=== PATIENT | male | born 1960 | race Caucasian/White ===

== ENCOUNTER 2019-12-20 17:52 | Emergency (ER) | payer BC, OTHER ==
[~2019-12-20] VITALS: Ht 167.6 cm; Wt 108.9 kg
[~2019-12-20 17:52] MED LIST: ALLO100; HYDACE5 PO; IBUP800 PO; INS70/30I; METF500; PIOG15; RXHYDACE PO
[2019-12-20 18:38] LABS: BASOPHILS ABSOLUTE AUTO 0.09 K/mm3 (0.00-0.23); BASOPHILS PERCENT AUTO 1 % (0-2); EOSINOPHILS ABSOLUTE AUTO 0.52 K/mm3 (0.00-0.68); EOSINOPHILS PERCENT AUTO 7 % (0-6); Hematocrit 45.5 % (37.0-53.0); Hemoglobin 15.4 g/dL (13.5-17.5); IMMATURE GRAN ABSOLUTE AUTO 0.03 K/mm3 (0.00-0.10); IMMATURE GRAN PERCENT AUTO 0 % (0-1); LYMPHOCYTES ABSOLUTE AUTO 3.57 K/mm3 (0.84-5.20); LYMPHOCYTES PERCENT AUTO 45 % (21-46); MONOCYTES ABSOLUTE AUTO 0.54 K/mm3 (0.16-1.47); MONOCYTES PERCENT AUTO 7 % (4-13); Mean Corpuscular HGB 33.7 pg (26.0-34.0); Mean Corpuscular HGB Conc 33.8 g/dL (31.5-36.5); Mean Corpuscular Volume 100 fL (80-100); Mean Platelet Volume 9.9 fL (9.1-12.4); NEUTROPHILS ABSOLUTE AUTO 3.13 K/mm3 (1.96-9.15); NEUTROPHILS PERCENT AUTO 40 % (41-73); Platelet Count 173 K/mm3 (150-400); RDW Coefficient Variation 14.6 % (11.7-14.2); RDW Standard Deviation 53.3 fL (35.1-46.3); Red Blood Cell Count 4.57 M/mm3 (4.30-5.90); White Blood Cell Count 7.88 K/mm3 (4.00-11.30)
[2019-12-20] MEDS ORDERED: ALLO300 PO (18:44)
[2019-12-20] MEDS ORDERED: ATOR20 PO (18:44)
[2019-12-20] MEDS ORDERED: ZESTRIL40 M1 PO (18:45)
[2019-12-20] MEDS ORDERED: AMLO5 PO (18:45)
[2019-12-20] MEDS ORDERED: PIOG45 PO (18:45)
[2019-12-20] MEDS ORDERED: Glucophage1000 MG PO (18:46)
[2019-12-20] MEDS ORDERED: BASAGLAR K100 UNIT/2 SC (18:46)
[2019-12-20] MEDS ORDERED: Aspirin EC81 MG PO (18:46)
[2019-12-20] MEDS ORDERED: JARDIANCE25 MG PO (18:46)
[2019-12-20 18:58] LABS: Anion Gap 8 mmol/L (6-16); Blood Urea Nitrogen 11 mg/dL (8-24); CO2, Blood 26 mmol/L (21-32); Calcium, Blood 9.1 mg/dL (8.5-10.1); Chloride, Blood 103 mmol/L (98-108); Creatinine, Blood 0.79 mg/dL (0.60-1.20); Ethanol (Alcohol), Blood, Med 266 mg/dL; Glomerular Filtration Rate >60 (60-); Glucose, Blood 147 mg/dL (70-99); Sodium, Blood 137 mmol/L (136-145)
== END 2019-12-20 19:40 | disposition home or self-care (01) ==
LOC: ER 17:52
PROVIDERS: Student in an Organized Health Care Education/Training Program
DX: F10.129 Alcohol abuse with intoxication, unspecified (principal); Y90.8 Blood alcohol level of 240 mg/100 ml or more; E10.9 Type 1 diabetes mellitus without complications; M10.9 Gout, unspecified; F17.200 Nicotine dependence, unspecified, uncomplicated
CPT/HCPCS: 70450; 80048; 85025; 93005; 93010; 99284-25; G0480

== ENCOUNTER 2023-03-18 06:17 | Day surgery (SDC) | payer OTHER ==
[~2023-03-18] VITALS: Ht 170.2 cm; Wt 82.6 kg
[2023-03-18] VITALS (7 sets, daily range): BP systolic 121–151; BP diastolic 68–97
[~2023-03-18 06:17] MED LIST changes: +ALBU90OI INH; +ALDACTONE25 MG PO; +ALLO300 PO; +AMLO5 PO; +ATOR20 PO; +Aspirin EC81 MG PO; +BASAGLAR K100 UNIT/2 SC; +BUPR150ER PO; +ENTRESTO 24 MG1 EACH PO; +Glucophage1000 MG PO; +JARDIANCE25 MG PO; +METO50ER PO; +PIOG30 PO; +PIOG45 PO; +TORS10 PO; +ZESTRIL40 M1 PO
--- NOTE | 2023-03-18 09:15 | NUR ---
pt back from procedure at this time. tr band in place to right wrist with 10cc of air in band. [facility] site wnl. pt. vss. food and beverages provided. call light in reach
--- NOTE | 2023-03-18 09:58 | NUR ---
ASSUMED CARE OF PATIENT, TR BAND IN PLACE. BREAKFAST TRAY COMPLETE. CLL LIGHT IN REACH. TR BAND SITE CDI, NO BLEEDING NO HEMATOMA. CALLED AND UPDATE HER ON DISCHARGE TIME.
--- NOTE | 2023-03-18 11:03 | NUR ---
1040 ATTEMPTED TO REMOVE AIR, BLEEDING OCCURED. AIR RETURNED TO TR BAND.
--- NOTE | 2023-03-18 11:04 | NUR ---
1100 AIR REMOVED FROM THE TR BAND, 2 ML, NO BLEEDING OCCURED THIS TIME. CONTINUED TO MONITOR. AT THE BEDSIDE. STARED DISCHARGE INSTRUCTIONS WITH AND .
--- NOTE | 2023-03-18 12:06 | NUR ---
1140 PIV REMOVED, CATH TIP INTACT, PRESSURE DRESSING APPLIED. TR BAND REMOVED AND SITE CLEANED AND COT DOT APPLIED. WHITE BOARD REAPPLIED. PATIENT DRESSED AND REVIEWED ALL DISCHARGE INSTRUCTIONS WITH THE PATIENT AND HIS . SIGNATURES OBTAINED. VERIFIED FOLLOW UP APPOINMENT.
--- NOTE | 2023-03-18 12:10 | NUR ---
1205 PATIENT DRESSED AND ALL BELONGINGS GATHERED AND DISCHARGED HOME WITH THE MANAGER DIABETES.
== END 2023-03-18 13:59 | disposition home or self-care (01) ==
LOC: MHTC 06:17
DX: I50.20 Unspecified systolic (congestive) heart failure (principal); I42.0 Dilated cardiomyopathy; E11.9 Type 2 diabetes mellitus without complications; Z79.84 Long term (current) use of oral hypoglycemic drugs
CPT/HCPCS: 76937; 93460; 93571; 93572; 99152; 99153; C1769; C1887; C1894; J0153; J1644; J2250; J3010; J7030; J7050; Q9967

== ENCOUNTER → 2024-03-04 | Outpatient (CLI) | payer OTHER ==
[2024-03-11 12:49] LABS: Stool Occult Bld Immuno 1 Negative (NEGATIVE)
== END | disposition home or self-care (01) ==
LOC: LAB 12:00 → LAB SHORT 12:00
PROVIDERS: Nurse Practitioner Family
DX: R79.9 Abnormal finding of blood chemistry, unspecified (principal)
CPT/HCPCS: G0328

== ENCOUNTER 2024-06-16 10:52 | Inpatient (IN) | payer OTHER ==
[~2024-06-16] VITALS: Ht 167.6 cm; Wt 89.0 kg
[~2024-06-16 10:52] MED LIST changes: -Glucophage1000 MG PO; +METF500 PO; +METO25ER PO; -METO50ER PO
[2024-06-16] MEDS ORDERED: Dextrose 50% 50 ML Syringe IV ONE (11:25)
[2024-06-16] MEDS ORDERED: Albuterol 2.5 MG/3 ML VIAL INH SCH (11:25)
[2024-06-16] MEDS ORDERED: Insulin Regular 100 Unit/ML 1ML Dose IV ONE (11:25)
[2024-06-16] MEDS ORDERED: Sodium Bicarb 8.4% 1 MEQ/ML 50 ML Vial IV ONE (11:25)
[2024-06-16] MEDS ORDERED: Dextrose 50% 50 ML Vial IV ONE (11:30)
[2024-06-16 11:31] LABS: BASOPHILS ABSOLUTE AUTO 0.11 K/mm3 (0.00-0.23); BASOPHILS PERCENT AUTO 1 % (0-2); EOSINOPHILS ABSOLUTE AUTO 0.46 K/mm3 (0.00-0.68); EOSINOPHILS PERCENT AUTO 5 % (0-6); Hemoglobin 12.8 g/dL (13.5-17.5); IMMATURE GRAN ABSOLUTE AUTO 0.01 K/mm3 (0.00-0.10); IMMATURE GRAN PERCENT AUTO 0 % (0-1); LYMPHOCYTES ABSOLUTE AUTO 1.68 K/mm3 (0.84-5.20); LYMPHOCYTES PERCENT AUTO 19 % (21-46); MONOCYTES ABSOLUTE AUTO 1.05 K/mm3 (0.16-1.47); MONOCYTES PERCENT AUTO 12 % (4-13); Mean Corpuscular HGB 32.3 pg (26.0-34.0); Mean Corpuscular Volume 101 fL (80-100); Mean Platelet Volume 10.4 fL (9.1-12.4); NEUTROPHILS ABSOLUTE AUTO 5.51 K/mm3 (1.96-9.15); NEUTROPHILS PERCENT AUTO 63 % (41-73); Platelet Count 165 K/mm3 (150-400); RDW Coefficient Variation 16.4 % (11.7-14.2); RDW Standard Deviation 61.5 fL (35.1-46.3); Red Blood Cell Count 3.96 M/mm3 (4.30-5.90); White Blood Cell Count 8.82 K/mm3 (4.00-11.30)
[2024-06-16 11:46] LABS: Magnesium, Blood 2.2 mg/dL (1.6-2.4)
[2024-06-16 11:47] LABS: Phosphorus, Blood 4.9 mg/dL (2.5-4.9)
[2024-06-16 12:43] LABS: Calcium, Ionized (POC) 1.23 mmol/L (1.10-1.46); Chloride (POC) 112 mmol/L (98-108); Creatinine (POC) 2.5 mg/dL (0.8-1.3); Glucose (ISTAT POC) 76 mg/dL (70-99); Hemoglobin (POC) 12.9 g/dL (13.5-17.5); Potassium (POC) 6.4 mmol/L (3.5-5.5); Sodium (POC) 139 mmol/L (135-148); Total CO2 (POC) 23 mmol/L (21-32)
[2024-06-16] MEDS ORDERED: Sodium Zirconium Cyclosilicate 10 GM Packet PO SCH (13:00)
[2024-06-16] MEDS ORDERED: FLU VACC TS2024-25(6MOS UP)/PF 45 MCG/0.5 ML SYRINGE IM SCH (13:05)
[2024-06-16] MEDS ORDERED: NS 1,000 ML IV SCH (13:05)
[2024-06-16] MEDS ORDERED: Insulin Human Lispro 100 Units/ML 3ML Syringe SC SCH (16:30)
[2024-06-16] MEDS ORDERED: ENTRESTO 24 MG1 EAC2 PO (17:24)
[2024-06-16] MEDS ORDERED: JARDIANCE25 MG PO (17:36)
[2024-06-16] MEDS ORDERED: SPIRONOLACTONE25 MG PO (17:37)
[2024-06-16] MEDS ORDERED: TORS10 PO (17:37)
[2024-06-16] MEDS ORDERED: XARELTO20 M1 PO (17:37)
[2024-06-16] MEDS ORDERED: SEMGLEE (Y100 UNIT/2 SC (17:37)
[2024-06-16 18:00] VITALS: BP 108/70
--- NOTE | 2024-06-16 18:00 | NUR ---
ADMIT: Patient arrived from the ER, he is alert and oriented x4. He was able to ambulate from the gurney to the bed. He denies pain at this time. He states he was getting routine labs checked from his cardiology office and they called him to come into the ER. He states he has been having leg cramps while he is sleeping and when it wakes him up he takes an over the counter supplement, I did ask the patient to have his bring his supplement in. HRR, he is SR in the 70s. BT+. PPP, no edema present at this time. VSS. He is oriented to the room and call light. Call light in reach.
[2024-06-16 18:41] VITALS: BP 156/78
--- NOTE | 2024-06-16 20:00 | NUR ---
ASSUMPTION OF CARE NOTE A/Ox4 AND COOPERATIVE WITH CARE. ANSWERS QUESTIONS APPROPRIATELY AND ABLE TO MAKE HIS NEEDS KNOWN. CARDIAC, TELEMETRY SHOWS SR RANGING 80-90'S WITH NO C/O CP, PRESSURE, OR DIZZINESS. SBP SOFT RANGING 90-100'S, MAP ALWAYS >65. RESPIRATORY, MAINTAINS SPO2 >95% ON RA. DENIES SOB OR DYSPNEA. GI/, DENIES N/V/D OR ABD TENDERNESS. BS PRESENT IN ALL QUADRANTS. ABLE TO INDENDENTLY AMBULATE TO BATHROOM TO VOID. 2xPIV NOTED WITH ONE IN EACH FOREARM. MED REC COMPLETED BY PREVIOUS SHIFT. DR. QUIROZ NOTIFIED WITH MD TO LOOK OVER LIST AND RESUME PT'S HOME MEDS NEEDED. CALL LIGHT WITHIN REACH, BED IN LOWEST POSITION.
[2024-06-16 20:21] LABS: Bun/Creatinine Ratio 26.8 (12.0-20.0); Calcium, Blood 9.6 mg/dL (8.5-10.1); Creatinine, Blood 1.83 mg/dL (0.60-1.20); Potassium, Blood 5.7 mmol/L (3.5-5.5)
[2024-06-16] MEDS ORDERED: Empagliflozin 25 MG TAB PO SCH (21:00)
[2024-06-16] MEDS ORDERED: Insulin Glargine-Yfgn 100 Unit/mL 3 ML SYR SC SCH (21:00)
[2024-06-16] MEDS ORDERED: Atorvastatin 10 MG Tab PO SCH (21:00)
[2024-06-16] MEDS ORDERED: Sacubitril/Valsartan 49 MG/51 MG Tab PO SCH (21:00)
[2024-06-16] MEDS ORDERED: Aspirin 81 MG Chew PO SCH (21:00)
[2024-06-16 21:02] VITALS: BP 104/58
[2024-06-16 23:29] VITALS: BP 92/57
[2024-06-17 04:29] VITALS: BP 94/59
[2024-06-17 04:33] LABS: Hematocrit 39.7 % (37.0-53.0); Hemoglobin 12.8 g/dL (13.5-17.5); Mean Corpuscular HGB 31.8 pg (26.0-34.0); Mean Corpuscular HGB Conc 32.2 g/dL (31.5-36.5); Mean Corpuscular Volume 99 fL (80-100); Mean Platelet Volume 10.4 fL (9.1-12.4); Platelet Count 173 K/mm3 (150-400); RDW Coefficient Variation 16.2 % (11.7-14.2); RDW Standard Deviation 59.7 fL (35.1-46.3); Red Blood Cell Count 4.03 M/mm3 (4.30-5.90); White Blood Cell Count 6.96 K/mm3 (4.00-11.30)
[2024-06-17 04:59] LABS: Bun/Creatinine Ratio 28.5 (12.0-20.0); Calcium, Blood 9.5 mg/dL (8.5-10.1); Creatinine, Blood 1.65 mg/dL (0.60-1.20); Potassium, Blood 5.2 mmol/L (3.5-5.5)
--- NOTE | 2024-06-17 06:13 | NUR ---
SHIFT SUMMARY NO ACUTE CHANGES SINCE ASSUMPTION OF CARE NOTE. SEE NOTE FOR DETAILS. WAS ABLE TO GET GOOD AMOUNT OF SLEEP DURING THE NIGHT. MORNING LABS SHOWED IMPROVEMENT IN KIDNEY FUNCTION. NO NEW ORDERS AT THIS TIME, WILL REPORT TO ONCOMING RN. BRIGITTE NASCIMENTO OF THIS NOTE.
[2024-06-17 08:04] VITALS: BP 92/64
--- NOTE | 2024-06-17 08:06 | NUR ---
NURSING PCU DAYSHIFT: Assumed care of pt at approx 0700. A/O, very pleasant, cooperative w/care. Sitting up in chair watching tv. Denies any pain/discomfort at rest. Ambulates independently and w/o difficulty. Skin intact w/no breakdown noted. Tele in place, NSR w/HR 70's, no c/o CP/pressure, SBP 92 prior to a.m. meds, no noted edema. L/S cta t/o w/dim bases, denies dyspnea, no noted cough, O2 sat 99% on RA. Abd SNT, BT+, voids w/o difficulty per pt. PIV x2, s/l. No s/s of acute distress this a.m. Pt is anticipating and hopeful for discharge home. Spouse at bedside this a.m. for visit and brought OTC home meds that pt uses to treat leg cramps. Pt denies any current needs/questions, call light in reach, awaiting rounding from PMD, cont to monitor for changes.
[2024-06-17] MEDS ORDERED: Heparin Sodium 5000 Units/ML 1ML MDV SC SCH (09:00)
[2024-06-17] MEDS ORDERED: LOKELMA10 GM PO (10:57)
--- NOTE | 2024-06-17 11:19 | NUR ---
NURSING PCU DISCHARGE SUMMARY: No significant changes t/o the a.m. Pt was getting antsy for discharge and requested staff to call PMD. Hospitalist to bedside, plan of care discussed, discharge home d/o received. Pt verbalized understanding of all written and verbal discharge instructions, PIV x2 dc'd w/caths intact, Rx's faxed to [facility] per pt request, home medications supplements placed in personal belongings back along with discharge packet. No s/s of acute distress at time of discharge, ambulated from unit independently w/o difficulty, denied questions at that time.
== END 2024-06-17 11:18 | disposition home or self-care (01) | DRG 683 ==
LOC: ER 10:52 → PCU 13:04 → ERHOLD 13:04 → PCU 18:10
PROVIDERS: Student in an Organized Health Care Education/Training Program; ADMIT Internal Medicine
DX: N17.9 Acute kidney failure, unspecified (principal); I13.0 Hypertensive heart and chronic kidney disease with heart failure and stage 1 through stage 4 chronic kidney disease, or unspecified chronic kidney disease; I42.0 Dilated cardiomyopathy; I50.22 Chronic systolic (congestive) heart failure; E87.5 Hyperkalemia; E78.5 Hyperlipidemia, unspecified; M10.9 Gout, unspecified; I51.3 Intracardiac thrombosis, not elsewhere classified; E87.6 Hypokalemia; E10.22 Type 1 diabetes mellitus with diabetic chronic kidney disease; N18.9 Chronic kidney disease, unspecified; Z90.89 Acquired absence of other organs; Z79.84 Long term (current) use of oral hypoglycemic drugs; Z79.82 Long term (current) use of aspirin; Z79.899 Other long term (current) drug therapy; Z87.891 Personal history of nicotine dependence; Z66 Do not resuscitate; Z79.4 Long term (current) use of insulin
CPT/HCPCS: 36415; 80047; 80048; 82947; 83735; 83880; 84100; 84132; 85014; 85025; 85027; 93005; 93010; 94644; 94664; 96374; 96375; 99284-25; A9270; J1815; J7030; J7799

== ENCOUNTER → 2025-07-05 | Outpatient (CLI) | payer OTHER ==
[~2025-07-05] MED LIST changes: +ENTRESTO 24 MG1 EAC2 PO; +FLUT1DIS2 INH; +FLUTICASONE-SAL12 GM INH; +FURO20 PO; +LOKELMA10 GM PO; -METO25ER PO; +METO50ER PO; +METTREX2.5 PO; +PERCOCET 10-321 EA13 PO; +Robaxin750 MG PO; +SEMGLEE (Y100 UNIT/2 SC; +SPIR25 PO; +SPIRONOLACTONE25 MG PO; +XARELTO20 M1 PO
[2025-07-05 16:45] LABS: BODY FLUID RBC 1.286 M/mm3 (0-0)
[2025-07-05 16:52] LABS: Glucose, Body Fluid 7 mg/dL
[2025-07-05 16:59] LABS: WBC Count, Synovial Fluid >200000 /mm3 (0-180)
[2025-07-05 17:30] LABS: Appearance, Synovial Fluid Bloody (Clear); Color, Synovial Fluid Red (None-P Yel)
[2025-07-05 18:04] LABS: Lymphs, Synovial Fluid 4 % (0-15); Neutrophils, Synovial Fluid 96 % (0-24)
[2025-07-07 16:22] LABS: BORRELIA SPECIES SOURCE Synovial fluid; BORRELIA SPP DNA DETECTION PCR Not Detected
== END ==
LOC: LAB 15:48 → LAB SHORT 15:48
PROVIDERS: Podiatrist Foot & Ankle Surgery
DX: S90.02XA Contusion of left ankle, initial encounter (principal)
CPT/HCPCS: 82945; 87070; 87075; 87077; 87102; 87116; 87147; 87186; 87205; 87476; 88108; 89051; 89060